=== PATIENT | female | born 1990 | race African-American/Black ===

== ENCOUNTER 2016-05-22 19:23 | Emergency (ER) | payer OTHER ==
[~2016-05-22] VITALS: Ht 177.8 cm; Wt 71.7 kg
[2016-05-22 19:53] LABS: HEMATOCRIT 33.2 % (36.0-46.0); MCH 29.1 PG (29.0-34.0); MCHC 33.7 G/DL (30.0-36.0); MCV 86.2 FL (83-99); RBC DIS.WIDTH-CV 13.3 % (11.8-14.6); RBC DIS.WIDTH-SD 41.5 % (39-53); RED BLOOD COUNT 3.85 M/uL (3.80-5.20); WHITE BLOOD COUNT 10.2 K/uL (4.1-10.2)
[2016-05-22 20:11] LABS: CHLORIDE 106 mEq/L (99-109); POTASSIUM 4.1 mEq/L (3.7-5.4); SODIUM 136 mEq/L (136-147)
[2016-05-22 20:13] LABS: GLUCOSE 94 mg/dL (70-99)
[2016-05-22 20:15] LABS: ANION GAP 7 MEQ/L (2-14); TOTAL BILIRUBIN 0.3 mg/dL (0.0-1.0)
[2016-05-22 20:17] LABS: ALKALINE PHOSPHATASE 30 IU/L (3-129); GFR ESTIMATE (CALCULATED) > 59 mL/min/
[2016-05-22 20:18] LABS: UREA NITROGEN (BUN) 12 mg/dL (9-23)
[2016-05-22 20:31] LABS: MEAN PLAT.VOLUME 11.9 uM^3 (9.5-12.4); PLATELET COUNT 229 K/uL (156-360)
[2016-05-22 20:44] LABS: QUANTITATIVE HCG 35614.7 MIU/ML
[2016-05-22 21:06] LABS: ADD MIUA? YES; BILIRUBIN NEGATIVE; BLOOD NEGATIVE; COLOR YELLOW ((YELLOW)); GLUCOSE (STRIP) NEGATIVE; KETONES NEGATIVE; LEUKOCYTES NEGATIVE; NITRITE NEGATIVE; PROTEIN (STRIP) 30; SPECIFIC GRAVITY 1.029 (1.000-1.030); UROBILINOGEN 0.2 MG/DL (0.2-1.0)
[2016-05-22 21:19] LABS: AMORPHOUS PHOSPHATE CRYSTALS 2+; BACTERIA 2+ /HPF; CASTS NONE SEEN /LPF; CRYSTALS PRESENT; EPITHELIAL CELLS 1+ /HPF; MUCUS NONE SEEN /LPF; RED BLOOD CELLS NONE SEEN /HPF (0-5); UCUL ADDED? NO; WHITE BLOOD CELLS RARE /HPF (0-5)
[2016-05-22] MEDS ORDERED: ZOFRAN ODT8 MG PO (21:30)
[2016-05-22 22:29] VITALS: BP 111/70
== END 2016-05-22 22:30 | disposition home or self-care (01) ==
LOC: RME 19:23 → EME 19:23 → RME 22:30
DX: O21.9 Vomiting of pregnancy, unspecified (principal); O26.892 Other specified pregnancy related conditions, second trimester; R19.7 Diarrhea, unspecified; R50.9 Fever, unspecified; R10.31 Right lower quadrant pain; Z3A.15 15 weeks gestation of pregnancy
CPT/HCPCS: 80053; 81003; 84702; 85027; 99281; 99283

== ENCOUNTER 2016-11-07 01:42 | Inpatient (IN) | payer OTHER ==
[~2016-11-07] VITALS: Ht 182.9 cm; Wt 82.7 kg
[2016-11-07] VITALS (10 sets, daily range): BP systolic 105–122; BP diastolic 54–71
[~2016-11-07 01:42] MED LIST: ZOFRAN ODT8 MG PO
[2016-11-07 04:42] LABS: EOSINOPHIL (%) 0.3 % (0-5); EOSINOPHIL COUNT 0.1 K/uL (0-0.3); HEMATOCRIT 35.3 % (36.0-46.0); IMMATURE GRANULOCYTE (%) 1.6 % (0.0-0.7); IMMATURE GRANULOCYTE COUNT 0.3 K/uL; INSTRUMENT ABS NEUTROPHIL CT 16.4 K/uL; LYMPHOCYTE COUNT 1.4 K/uL (1.0-2.8); MCH 29.5 PG (29.0-34.0); MCHC 33.7 G/DL (30.0-36.0); MCV 87.6 FL (83-99); MEAN PLAT.VOLUME 12.6 uM^3 (9.5-12.4); MONOCYTE COUNT 0.8 K/uL (0-0.8); NEUTROPHIL (%) 86.3 % (45-76); NEUTROPHIL COUNT 16.4 K/uL (1.8-6.4); PLATELET COUNT 192 K/uL (156-360); RBC DIS.WIDTH-CV 12.8 % (11.8-14.6); RBC DIS.WIDTH-SD 40.8 % (39-53); RED BLOOD COUNT 4.03 M/uL (3.80-5.20)
[2016-11-08 05:49] LABS: EOSINOPHIL (%) 0.6 % (0-5); EOSINOPHIL COUNT 0.1 K/uL (0-0.3); HEMATOCRIT 28.8 % (36.0-46.0); IMMATURE GRANULOCYTE (%) 1.1 % (0.0-0.7); IMMATURE GRANULOCYTE COUNT 0.2 K/uL; INSTRUMENT ABS NEUTROPHIL CT 11.7 K/uL; LYMPHOCYTE COUNT 1.7 K/uL (1.0-2.8); MCHC 34.4 G/DL (30.0-36.0); MCV 90.3 FL (83-99); MONOCYTE (%) 7.2 % (3-12); MONOCYTE COUNT 1.1 K/uL (0-0.8); NEUTROPHIL (%) 79.4 % (45-76); NEUTROPHIL COUNT 11.7 K/uL (1.8-6.4); PLATELET COUNT 136 K/uL (156-360); RBC DIS.WIDTH-CV 13.1 % (11.8-14.6); RBC DIS.WIDTH-SD 42.8 % (39-53); WHITE BLOOD COUNT 14.8 K/uL (4.1-10.2)
[2016-11-08 05:50] LABS: RED BLOOD COUNT 3.19 M/uL (3.80-5.20)
[2016-11-09 08:00] VITALS: BP 115/65
[2016-11-09 15:00] VITALS: BP 116/61
[2016-11-09 23:05] VITALS: BP 115/61
[2016-11-10 07:23] VITALS: BP 114/71
[2016-11-10 15:32] VITALS: BP 100/58
[2016-11-10 22:57] VITALS: BP 104/57
[2016-11-11 07:13] VITALS: BP 121/60
[2016-11-11] MEDS ORDERED: IBUPROFEN800 MG PO (08:39)
[2016-11-11] MEDS ORDERED: ENDOCET 5-3251 EACH PO (08:39)
[2016-11-11] MEDS ORDERED: FERROUS SULFAT325 MG PO (08:39)
[2016-11-11 15:09] VITALS: BP 120/69
== END 2016-11-11 17:35 | disposition home or self-care (01) | DRG 765 ==
LOC: LDRP-OP 01:42 → 2WEST 01:44 → LDRP-OP 12-17 10:34
PROVIDERS: Advanced Practice Midwife; Obstetrics & Gynecology Obstetrics
PROC: 10D00Z1 Extraction of Products of Conception, Low, Open Approach (ICD-10-PCS; principal; 2016-11-07)
PROC: 10907ZC Drainage of Amniotic Fluid, Therapeutic from Products of Conception, Via Natural or Artificial Opening (ICD-10-PCS; 2016-11-07)
DX: O76 Abnormality in fetal heart rate and rhythm complicating labor and delivery (principal); D62 Acute posthemorrhagic anemia; Z3A.38 38 weeks gestation of pregnancy; Z37.0 Single live birth; O99.02 Anemia complicating childbirth; O69.1XX1 Labor and delivery complicated by cord around neck, with compression, fetus 1; O32.4XX1 Maternal care for high head at term, fetus 1
CPT/HCPCS: 74000; 85025; 86850; 86900; 86901; J0131; J0330; J0595; J0690; J1100; J1885; J2405; J2590; J3010; J7050; J7120; Q0169